=== PATIENT | male | born 1935 | race Caucasian/White ===

== ENCOUNTER 2019-04-04 10:34 | Outpatient (CLI) | payer MEDICARE | END 2019-04-04 23:59 | disposition home or self-care (01) | LOC: CFH 10:34 | PROVIDERS: ATTEND Psychiatry & Neurology Neurology | DX: G31.9 Degenerative disease of nervous system, unspecified (principal); I67.82 Cerebral ischemia; R90.82 White matter disease, unspecified; F03.90 Unspecified dementia, unspecified severity, without behavioral disturbance, psychotic disturbance, mood disturbance, and anxiety | CPT/HCPCS: 70450 ==